=== PATIENT | female | born 1940 | race Two or more races ===

== ENCOUNTER 2024-12-30 16:11 | Emergency (ER) | payer OTHER ==
[~2024-12-30] VITALS: Ht 162.6 cm; Wt 59.0 kg
[2024-12-30] MEDS ORDERED: GUAIFENESIN/DEXTROMETHORPHAN 100MG/10ML BLIST.PACK PO ONE (18:30)
[2024-12-30] MEDS ORDERED: LEVALBUTEROL HCL 1.25 MG/3 ML SOLUTION IH SCH (18:30)
[2024-12-30] MEDS ORDERED: IPRATROPIUM BROMIDE 0.5 MG/2.5 ML AMPUL.NEB IH SCH (18:30)
[2024-12-30] MEDS ORDERED: METHYLPREDNISOLONE SOD SUCC 125 MG VIAL IM ONE (18:30)
[2024-12-30 19:53] LABS: HEMATOCRIT 34.3 % (36.0-45.00); HEMOGLOBIN 11.5 g/dL (12.0-15.00); MEAN CELL VOLUME 98.6 fL (80.00-100.00); MEAN CORPUSCULAR HEMOGLOBIN 33.1 pg (27.00-32.0); MEAN CORPUSCULAR HGB CONC 33.6 g/dl (32.0-36.0); PLATELET COUNT 164 K/uL (150-450); RED BLOOD COUNT 3.48 M/uL (4.00-6.00); RED CELL DISTRIBUTION WIDTH 13.1 % (11.5-14.5)
[2024-12-30] MEDS ORDERED: SINGULAIR10 MG PO (21:58)
[2024-12-30] MEDS ORDERED: IPRATROPIU0.2 MG/1 M IH (21:58)
[2024-12-30] MEDS ORDERED: LEVOFLOXACIN750 MG PO (21:58)
[2024-12-30] MEDS ORDERED: MEDROLPACK PO (21:58)
[2024-12-30] MEDS ORDERED: XOPENEX CO1.25 MG/0. IH (21:58)
[2024-12-30] MEDS ORDERED: TUSSIN DM LIQU118 ML PO (21:58)
[2024-12-30 23:03] LABS: ABG PH 7.407 (7.35-7.45); ABG pCO2 40.1 mmHg (35-45); BASE EXCESS 0 mmol/l; BICARBONATE 24.6 mmol/l (23-25); SaO2 96.7 %; Tco2 25.9 mmol/l; o2 21 %
[2024-12-30 23:04] LABS: allen test SATISFACTORY; puncture site RADIAL RIGHT
[2024-12-30 23:06] LABS: ABG PO2 87.8 mmHg (80-100)
[2024-12-31] MEDS ORDERED: GILTUSS COUGH-118 M1 PO (01:52)
[2024-12-31] MEDS ORDERED: ZITHROMAX TRI-500 MG PO (01:52)
[2024-12-31] MEDS ORDERED: ACETAMINOPHEN500 M1 PO (01:52)
== END 2024-12-31 00:29 ==
LOC: ER 16:12
PROVIDERS: Preventive Medicine Public Health & General Preventive Medicine
DX: J06.9 Acute upper respiratory infection, unspecified (principal); R05.9 Cough, unspecified; Z20.822 Contact with and (suspected) exposure to COVID-19; I10 Essential (primary) hypertension; Z88.0 Allergy status to penicillin; Z88.2 Allergy status to sulfonamides; Z91.013 Allergy to seafood
CPT/HCPCS: 36415; 71046; 71250; 82803; 94640; 96372; 99284; J3490